=== PATIENT | male | born 1980 | race Caucasian/White ===

== ENCOUNTER 2021-12-10 21:50 | Emergency (ER) | payer OTHER ==
[2021-12-10 22:46] LABS: BASOPHIL 0.5 % (0-2); EOSINOPHIL 2.6 % (0-5); HCT 38.2 % (42.0-52.0); HGB 13.2 g/dl (13.2-18.0); LYMPHOCYTE 29.7 % (15-48); MCH 32.1 pg (25.0-31.0); MCHC 34.6 g/dL (32.0-36.0); MCV 92.9 fL (78.0-100.0); MONOCYTE 6.6 % (0-12); NEUTROPHIL 60.4 % (41-80); NRBC 0; PLT 249 K/uL (150-400); RBC 4.11 M/uL (4.70-6.00); RDW 12.5 % (11.5-14.0)
[2021-12-10 23:05] LABS: ALBUMIN 3.8 g/dL (3.4-5.0); BILIRUBIN - TOTAL 0.6 mg/dL (0.2-1.0); BUN/CREAT RATIO (CALC) 9.2 RATIO; CREATININE 0.98 mg/dL (0.67-1.17); GLOBULIN (CALCULATION) 2.5 g/dL; POTASSIUM 3.4 mmol/L (3.5-5.1); TOTAL PROTEIN 6.3 g/dL (6.4-8.2)
[2021-12-11 00:29] LABS: BILIRUBIN NEGATIVE (NEGATIVE); BLOOD NEGATIVE Ery/uL (NEGATIVE); CLARITY CLEAR (CLEAR); COLOR YELLOW (YELLOW); GLUCOSE (U) NORMAL (NORMAL); LEUKOCYTES NEGATIVE Leu/uL (NEGATIVE); NITRITE NEGATIVE (NEGATIVE); PROTEIN NEGATIVE (NEGATIVE); UROBILINOGEN 0.2 mg/dL (0.2-1.0)
[2021-12-11] MEDS ORDERED: PERCOCET 5-3251 EACH PO (00:38)
[2021-12-11] MEDS ORDERED: ONDANSETRON ODT4 MG PO (00:38)
[2021-12-11] MEDS ORDERED: PREDNISONE 20MG20 MG PO (00:41)
[2021-12-11] MEDS ORDERED: ZYRTEC10 MG PO (00:41)
== END 2021-12-11 01:01 | disposition home or self-care (01) ==
LOC: FER 21:50
PROVIDERS: Emergency Medicine; Internal Medicine
DX: R10.9 Unspecified abdominal pain (principal); L27.0 Generalized skin eruption due to drugs and medicaments taken internally; T36.8X5A Adverse effect of other systemic antibiotics, initial encounter; Z88.1 Allergy status to other antibiotic agents
CPT/HCPCS: 36415; 80053; 81003; 83690; 85025; J7512